=== PATIENT | female | born 1975 | race African-American/Black ===

== ENCOUNTER 2016-12-09 11:19 | Inpatient (IN) | payer MEDICAID ==
[~2016-12-09] VITALS: Ht 170.2 cm; Wt 51.7 kg
[2016-12-09 11:56] LABS: BASOPHILS % 1.4 % (0.0-2.0); EOSINOPHILS % 1.4 % (0.0-5.0); HEMATOCRIT. 33.2 % (36.0-48.0); HEMOGLOBIN. 10.9 g/dL (12.0-16.0); LYMPHOCYTES % 39.7 % (20.0-50.0); MEAN CORPUSCULAR HEMOGLOBIN 30.4 pg (28.0-32.0); MEAN CORPUSCULAR VOLUME 92.4 fL (81.0-99.0); MEAN PLATELET VOLUME 6.5 fl (7.4-10.4); MONOCYTES % 10.9 % (2.0-8.0); NEUTROPHILS % 46.6 % (40.0-76.0); PLATELET 322 x1000/uL (130-400); RED CELL DISTRIBUTION WIDTH 15.4 % (11.6-14.6)
[2016-12-09 12:11] LABS: PROTHROMBIN TIME 10.4 sec
[2016-12-09 12:12] LABS: CARBON DIOXIDE 26 mEq/L (21-32); CHLORIDE 109 mEq/L (98-107); TROPONIN I < 0.02 ng/mL (0.00-0.04)
[2016-12-09 12:15] LABS: CLARITY URINE CLEAR (CLEAR); COLOR URINE YELLOW (YELLOW); GLUCOSE URINE NEGATIVE (NEGATIVE); KETONES URINE NEGATIVE (NEGATIVE); LEUKOCYTE ESTERASE URINE NEGATIVE (NEGATIVE); NITRITE URINE NEGATIVE (NEGATIVE); OCCULT BLOOD URINE NEGATIVE (NEGATIVE); PROTEIN URINE NEGATIVE (NEGATIVE); SPECIFIC GRAVITY URINE 1.015 (1.005-1.030)
[2016-12-09] MEDS ORDERED: LORAZEPAM 1MG TABLET PO ONE (12:15)
[2016-12-09 12:16] LABS: HCG SCREEN NEGATIVE
[2016-12-09 12:49] LABS: *AMPHETAMINES SCREEN URINE NEGATIVE (NEGATIVE); *BARBITURATES SCREEN URINE NEGATIVE (NEGATIVE); *BENZODIAZEPINES SCREEN URINE NEGATIVE (NEGATIVE); *COCAINE SCREEN URINE NEGATIVE (NEGATIVE); METHADONE URINE SCREEN NEGATIVE (NEGATIVE); OPIATES URINE SCREEN NEGATIVE (NEGATIVE); PHENCYCLIDINE URINE SCREEN NEGATIVE (NEGATIVE)
[2016-12-09 12:59] LABS: CANNABINOID URINE SCREEN PRESUMTIVE POSITIVE (NEGATIVE)
[2016-12-09] MEDS ORDERED: LORAZEPAM 2MG/ML CPJ IV ONE (13:45)
[2016-12-09] MEDS ORDERED: ASPIRIN 325MG EC TABLET PO ONE (15:30)
[2016-12-09 20:35] VITALS: BP 112/73
[2016-12-09] MEDS ORDERED: OMEP40CA34 PO (22:55)
[2016-12-09] MEDS ORDERED: MONT10TA21 PO (22:55)
[2016-12-09] MEDS ORDERED: FLUO-124 PO (22:55)
[2016-12-10] VITALS: BP 100/56
[2016-12-10 04:00] VITALS: BP 104/70
[2016-12-10] MEDS: OMEPRAZOLE 20MG CAPSULE EXTENDED RELEASE PO SCH (06:24)
[2016-12-10 06:42] LABS: BASOPHILS % 0.6 % (0.0-2.0); HEMATOCRIT. 35.2 % (36.0-48.0); HEMOGLOBIN. 11.7 g/dL (12.0-16.0); LYMPHOCYTES % 50.9 % (20.0-50.0); MEAN CORPUSCULAR VOLUME 93.4 fL (81.0-99.0); MEAN PLATELET VOLUME 7.1 fl (7.4-10.4); MONOCYTES % 11.8 % (2.0-8.0); NEUTROPHILS % 34.7 % (40.0-76.0); PLATELET 345 x1000/uL (130-400); RED BLOOD CELL COUNT 3.77 mill/uL (4.2-5.4); RED CELL DISTRIBUTION WIDTH 15.1 % (11.6-14.6)
[2016-12-10 07:51] LABS: CHLORIDE 106 mEq/L (98-107)
[2016-12-10 08:00] VITALS: BP 112/67
[2016-12-10] MEDS: ASPIRIN 325MG EC TABLET PO SCH (08:17)
[2016-12-10] MEDS: MONTELUKAST SODIUM 10MG TABLET PO SCH (08:18)
[2016-12-10] MEDS: FLUOXETINE HCL 20MG CAPSULE PO SCH (08:18)
[2016-12-10 08:19] LABS: CARBON DIOXIDE 24 mEq/L (21-32); HDL CHOLESTEROL 59 mg/dL (40-59); LDL CHOLESTEROL 78 mg/dL (5-100)
[2016-12-10] MEDS ORDERED: LORAZEPAM 2MG/ML CPJ IV NR (10:45)
[2016-12-10 11:43] LABS: T4 FREE 1.07 ng/dL (0.76-1.46)
[2016-12-10 12:00] VITALS: BP 140/80
[2016-12-10 12:28] LABS: VITAMIN B12 SERUM 1101 pg/mL (211-911)
[2016-12-10 12:34] LABS: FOLIC ACID (FOLATE) SERUM > 20.00 ng/mL (>5.38)
[2016-12-10 16:00] VITALS: BP 113/67
[2016-12-10] MEDS ORDERED: LORAZEPAM 2MG/ML CPJ IV PRN (19:15)
[2016-12-10 20:00] VITALS: BP 110/77
[2016-12-11] VITALS: BP 126/80
[2016-12-11 04:00] VITALS: BP 100/59
[2016-12-11] MEDS: OMEPRAZOLE 20MG CAPSULE EXTENDED RELEASE PO SCH (06:34)
[2016-12-11 08:00] VITALS: BP 105/67
[2016-12-11] MEDS: MONTELUKAST SODIUM 10MG TABLET PO SCH (10:44)
[2016-12-11] MEDS: FLUOXETINE HCL 20MG CAPSULE PO SCH (10:44)
[2016-12-11] MEDS: ASPIRIN 325MG EC TABLET PO SCH (10:44)
[2016-12-11 12:00] VITALS: BP 108/66
[2016-12-11] MEDS ORDERED: GADOBENATE DIMEGLUMINE 529 MG/ML 10ML IV ONE (14:05)
[2016-12-11 16:00] VITALS: BP 105/64
[2016-12-11 20:00] VITALS: BP 105/68
[2016-12-12] VITALS: BP 110/75
[2016-12-12 04:00] VITALS: BP 102/62
[2016-12-12] MEDS: OMEPRAZOLE 20MG CAPSULE EXTENDED RELEASE PO SCH (06:18)
[2016-12-12 08:00] VITALS: BP 107/74
[2016-12-12] MEDS: MONTELUKAST SODIUM 10MG TABLET PO SCH (08:47)
[2016-12-12] MEDS: FLUOXETINE HCL 20MG CAPSULE PO SCH (08:47)
[2016-12-12] MEDS: ASPIRIN 325MG EC TABLET PO SCH (08:47)
[2016-12-12 12:00] VITALS: BP 108/62
[2016-12-12 16:00] VITALS: BP 123/76
[2016-12-12 20:00] VITALS: BP 112/71
[2016-12-13] VITALS: BP 118/69
[2016-12-13 04:00] VITALS: BP 120/71
[2016-12-13] MEDS: OMEPRAZOLE 20MG CAPSULE EXTENDED RELEASE PO SCH (06:25)
[2016-12-13 08:34] VITALS: BP 108/69
[2016-12-13] MEDS: FLUOXETINE HCL 20MG CAPSULE PO SCH (08:45)
[2016-12-13] MEDS: MONTELUKAST SODIUM 10MG TABLET PO SCH (08:45)
[2016-12-13] MEDS: ASPIRIN 325MG EC TABLET PO SCH (08:45)
[2016-12-13 11:56] VITALS: BP 119/87
[2016-12-13 12:00] VITALS: BP 119/87
[2016-12-13 17:11] LABS: ANA IFA Negative (.)
== END 2016-12-13 13:01 | disposition home or self-care (01) | DRG 47 ==
LOC: ER 11:53 → 8WST 15:31 → ENRESERV 19:48
PROVIDERS: ADMIT Internal Medicine; ATTEND Internal Medicine
DX: G45.9 Transient cerebral ischemic attack, unspecified (principal); G95.89 Other specified diseases of spinal cord; M48.02 Spinal stenosis, cervical region; M50.221 Other cervical disc displacement at C4-C5 level; D64.9 Anemia, unspecified; J45.909 Unspecified asthma, uncomplicated; F12.10 Cannabis abuse, uncomplicated; M47.9 Spondylosis, unspecified
CPT/HCPCS: 36415; 70450; 70551; 70552; 71010; 72141; 80048; 80053; 80061; 80305; 81003; 82607; 82746; 83036; 84439; 84443; 84481; 84484; 84703; 85025; 85610; 85651; 86256; 93005; 93306; 93880; 96374; 97116; 97163; 97166; 99285; A9577; J2060

== ENCOUNTER 2018-12-18 13:43 | Emergency (ER) | payer MEDICAID ==
[~2018-12-18] VITALS: Ht 170.2 cm; Wt 48.0 kg
[~2018-12-18 13:43] MED LIST: FLUO-124 PO; MONT10TA21 PO; OMEP40CA34 PO
[2018-12-18] MEDS ORDERED: MORPHINE SULFATE 4 MG/ML CPJ (NOT FOR IM USE) IV STA (15:39)
[2018-12-18] MEDS ORDERED: DIPHENHYDRAMINE 50MG/ML VIAL IV ONE (15:45)
[2018-12-18 15:59] LABS: BASOPHILS % 0.2 % (0.0-2.0); CHLORIDE 109 mEq/L (98-107); EOSINOPHILS % 0.9 % (0.0-5.0); HEMATOCRIT. 37.8 % (36.0-48.0); HEMOGLOBIN. 13.1 g/dL (12.0-16.0); LYMPHOCYTES % 30.7 % (20.0-50.0); MEAN CORPUSCULAR HEMOGLOBIN 34.9 pg (28.0-32.0); MONOCYTES % 9.1 % (2.0-8.0); NEUTROPHILS % 59.1 % (40.0-76.0); PLATELET 219 x1000/uL (130-400); RED BLOOD CELL COUNT 3.74 mill/uL (4.2-5.4); RED CELL DISTRIBUTION WIDTH 14.2 % (11.6-14.6)
[2018-12-18 17:10] VITALS: BP 116/69
== END 2018-12-18 17:17 | disposition home or self-care (01) ==
LOC: ER 13:43
DX: M79.18 Myalgia, other site (principal); G35 Multiple sclerosis; J45.909 Unspecified asthma, uncomplicated; Z98.890 Other specified postprocedural states; Z88.0 Allergy status to penicillin
CPT/HCPCS: 36415; 80053; 85025; 96374; 96375; 99283; J1200; J2270